=== PATIENT | female | born 1995 | race Caucasian/White ===

== ENCOUNTER 2017-05-07 13:41 | Emergency (ER) | payer BC ==
[~2017-05-07] VITALS: Ht 157.4 cm; Wt 86.2 kg
[~2017-05-07 13:41] MED LIST: MOTRIN800 MG PO; NKHM
== END 2017-05-07 14:41 | disposition home or self-care (01) ==
LOC: ED 13:41
DX: S83.92XA Sprain of unspecified site of left knee, initial encounter (principal); X50.1XXA Overexertion from prolonged static or awkward postures, initial encounter; Y93.89 Activity, other specified; Y92.89 Other specified places as the place of occurrence of the external cause; Y99.9 Unspecified external cause status